=== PATIENT | female | born 1990 | race Caucasian/White ===

== ENCOUNTER 2017-08-17 12:56 | Outpatient (CLI) | payer BC ==
[~2017-08-17 12:56] MED LIST: Iopamidol 370 76% 100 ML VIAL ONE
--- NOTE | 2017-08-17 16:24 | CT ---
CT ABDOMEN AND PELVIS WITH AND WITHOUT IV CONTRAST: History: Diabetes. Family history of pancreatic cancer. FINDINGS: No comparison. Minimal atelectasis is present at the lung bases. The liver, spleen, kidneys, adrenal glands and pancreas have a normal CT appearance. No enlarged lymph nodes or free fluid are apparent. Urinary bladder is unremarkable. IMPRESSION: 1. Normal CT appearance of the pancreas. No significant abnormalities are demonstrated. POS: [facility]
== END 2017-08-17 12:57 | disposition home or self-care (01) ==
LOC: SCSCT 12:56
PROVIDERS: ATTEND Family Medicine
DX: E11.65 Type 2 diabetes mellitus with hyperglycemia (principal); Z80.0 Family history of malignant neoplasm of digestive organs
CPT/HCPCS: 74178